=== PATIENT | male | born 1955 | race Asian ===

== ENCOUNTER 2019-05-28 19:51 | Inpatient (IN) | payer MEDICAID ==
[~2019-05-28] VITALS: Ht 177.8 cm; Wt 81.2 kg
[2019-05-28 19:59] VITALS: Ht 177.8 cm; Wt 81.2 kg
--- NOTE | 2019-05-28 20:15 | NUR ---
PT BROUGHT IN BY FAMILY DUE TO C/O OF SOB, GENERALIZED WEAKNESS, POOR APPEITIE, PT IS AAO X 4, MAINLY CANTONESE SPEAKING, DENIES HEADACHE BUT C/O OF DIZZINESS, LUNG SOUNDS DIMINISHED, ON ROOM AIR WITH SPO2:97%, SOB ON EXERTION, ON AND OFF COUGHT WITH BLOOD TINGED SPUTUM, PLACED PT ON PUBLIC FINANCE SPECIALIST WITH NSR, GENERALIZED WEAKNESS, NOTED PT SKIN IS PALE, DR QUINONEZ AT BEDSIDE AND SHEREE PT.
[2019-05-28 21:47] LABS: PLATELET COUNT 86 x10^3mcL (130-400); RED CELL DISTRIBUTION WIDTH 21.4 % (11.5-14.5)
--- NOTE | 2019-05-28 21:50 | NUR ---
DR QUINONEZ MADE AWARE OF PT'S WBC-316.
[2019-05-28 21:51] LABS: ALBUMIN 3.5 g/dL (3.4-5.0); BILIRUBIN TOTAL 1.3 mg/dL (0.20-1.00); CALCIUM 9.5 mg/dL (8.5-10.1); CARBON DIOXIDE 25.1 mmol/L (21-32); CREATININE SERUM 2.4 mg/dL (0.7-1.3); MAGNESIUM 1.8 mg/dL (1.8-2.4); PHOSPHOROUS 4.7 mg/dL (2.5-4.9); TOTAL PROTEIN, SERUM 7.2 g/dL (6.4-8.2)
[2019-05-28 22:13] LABS: POTASSIUM SERUM 2.5 mmol/L (3.5-5.1)
--- NOTE | 2019-05-28 22:14 | NUR ---
DR QUINONEZ AT BEDSIDE AND DISCUSSED POC.
[2019-05-28 22:20] LABS: BLAST 40 % (0); rbc morphology (normal/abnorm) ABNORMAL (NORMAL)
[2019-05-28 22:21] LABS: MONOCYTE 30 % (0-7)
[2019-05-28 22:24] LABS: BAND NEUTROPHIL 2 % (0-10); SEGMENTED NEUTROPHILS 12 % (37-75)
[2019-05-28 22:26] LABS: PATH REVIEW for HEMA YES; PLATELET MORPHOLOGY PLATELETS DECREASED
--- NOTE | 2019-05-28 22:50 | NUR ---
PT TO CT SCAN VIA [facility].
[2019-05-28] MEDS ORDERED: RENAL CAPS1 SGL PO (23:50)
[2019-05-28] MEDS ORDERED: LOP600 PO (23:51)
[2019-05-28] MEDS ORDERED: IBUPROFEN400 MG PO (23:51)
[2019-05-28] MEDS ORDERED: FOLBIC PO (23:51)
[2019-05-28] MEDS ORDERED: FERROUS SULFAT325 M2 PO (23:52)
[2019-05-29] VITALS (8 sets, daily range): BP systolic 106–128; BP diastolic 66–72
--- NOTE | 2019-05-29 00:01 | NUR ---
DR SERRA AT BED SIDE AND SHEREE ROBERT.
[2019-05-29 00:07] LABS: CHOLESTEROL/HDL RATIO 5.7
--- NOTE | 2019-05-29 00:12 | NUR ---
REPORT CALLED AND GIVEN TO SUNSHINE, ALL QUESTIONS ANSWERED AND CONCERNS ADDRESSED.
--- NOTE | 2019-05-29 00:19 | NUR ---
RECEIVED PT VIA [facility] FROM E/D, ACCOMPANIED BY RN, TRANSPORTER, AND PT'S SON-IN-LAW, CHEYENNE KNIGHT. PT A/A/O X 4, CALM, COOPERATIVE, CANTONESE-SPEAKING, SON-IN-LAW BY BEDSIDE COACH WIRER. PT W/ GENERALIZED WEAKNESS, BUT ABLE TO AMBULATE W/ SLOW, STEADY GAIT FROM GURNEY TO BED, FALL RISK PROTOCOL IN PLACE. ON TELE # 23, SR + DEPRESSED ST WAVES + OCCASIONAL PAC'S, HR 97, +DIZZINESS, C/O ACHING CHEST PAIN 7/10 (2/2 COUGHING). SCD BY BEDSIDE. LUNGS BILATERALLY DIM, CHEST RISING EVENLY, R/A, 96%, SOB ON EXERTION, C/O PRODUCTIVE COUGH W/ SMALL AMOUNT OF PINK-TINGED SPUTUM. ABD SOFT, FLAT, NON-TENDER, NORMOACTIVE BOWEL SOUNDS X 4 QUADS, LAST BM 05/28/19, FORMED, EPISODES OF DSYPHAGIA, POOR PO INTAKE > DAYS, WT LOSS > 10# X 1 MO. NOTED L LATERAL NECK LUMP ABOUT 2.5 CM X 3.0 CM, NO ERYTHEMA OR PAIN. C/O CONSTANT ACHING PAIN TO MOUTH, CHIN, AND STOMACH 7/10, EXACERBATED BY MOVEMENT, RELIEVED MILDLY BY RESTING. IV SITE RAC 20G, CDI. ORIENTED PT TO ROOM, BED CONTROLS, CALL LIGHT SYSTEM. SIDE RAILS UP X 2, BED IN LOW POSITION. WILL ENDORSE TO RENA FITZGERALD.
[2019-05-29 00:28] LABS: microscopic required? YES; urine erythrocyte 1+ (NEGATIVE)
--- NOTE | 2019-05-29 06:26 | NUR ---
Pt. currently asleep with family at bedside. Pt. was asleep for most of the shift, no c/o of pain s/p [place] administered around 0100 this morning. Pt. finished ordered dose of IV medication, IV site in tact and patent, extension placed and taped. IVF to start at 0700 this morning as ordered, will endorse to next shift, bag readily available to start IVF @ 100 cc/hr this am. Pt. did have an episode of running low on O2 saturation, placed pt. on NC 2L. Pt. noted to breath throught his mouth, educated pt. and family member that he needs to breathe through his nose to get the oxygen being supplied. O2 sat war around 88-90% on RA d/t mouth breathing. W/ O2 placed, pt. noted to have a reading of 94%, when breathing through mouth. Pt. had no c/o of SOB, just the O2 sat was running low. otherwise, pt. stable, will continue to monitor until the end of shift and endrose to next shift RN.
[2019-05-29 06:53] LABS: CALCIUM 8.9 mg/dL (8.5-10.1); CARBON DIOXIDE 23.7 mmol/L (21-32); CREATININE SERUM 2.5 mg/dL (0.7-1.3); MAGNESIUM 2.2 mg/dL (1.8-2.4); PHOSPHOROUS 7.2 mg/dL (2.5-4.9); POTASSIUM SERUM 3.2 mmol/L (3.5-5.1)
--- NOTE | 2019-05-29 07:40 | NUR ---
RECEIVED PATIENT AWAKE/ALERT IN BED SOB/ LABORED BREATHING NOTED. REPOSITION UP IN BED W/ HOB ELEVATED, O2 2LNC NOTED. TELE #23 ST /W HR 107 NOTED. FAMILY MEMBERS AT BEDSIDE. IVF NS AT 100 ML/HR STARTED TO IV LAC PATENT, DISCUSS POC. CALL LIGHT WITHIN REACH.
[2019-05-29 08:51] LABS: PLATELET COUNT 73 x10^3mcL (130-400); RED CELL DISTRIBUTION WIDTH 21.4 % (11.5-14.5)
--- NOTE | 2019-05-29 09:31 | NUR ---
RECEIVED ORDER FOR BIOPSY OF CERVICAL LYMPHADENOPATHY. SPOKE WITH PATHOLOGIST WHO WILL NEED A SPECIAL PRESERVATIVE "RPMI" TO PREPARE THE SLIDES IF R/O LYMPHOMA IS INDICATED. SPOKE WITH RHEA IN PATHOLOGY AT 0830 WHO WILL ORDER THE RPMI. PER RADIOLOGIST DR AHN THE BIOPSY CAN BE DONE WHEN THE PATHOLOGIST IS AVAILABLE.
[2019-05-29 09:35] LABS: PLATELET COUNT 61 x10^3mcL (130-400); RED CELL DISTRIBUTION WIDTH 21.1 % (11.5-14.5)
[2019-05-29 10:14] LABS: RED BLOOD CELLS 2.15 M/mm3 (4.52-5.90)
--- NOTE | 2019-05-29 10:14 | NUR ---
PATIENT BACK FROM CT HEAD VIA WC, IN BED WITH FAMILY AT BEDSIDE. DR. LEO WAS MADE AWARE REPEATED WBC 314 AND HGB 6.8 AND WAS AWARE NEED PRESERATIVE FOR BIOPSY BEFORE PROCEDURE TAKE PLACE AND PATHOLOGY WILL TRY TO GET IT.
--- NOTE | 2019-05-29 11:45 | NUR ---
PATIENT RESTING IN BED WITH EYES CLOSED, AND SON IN-LAW AT BEDSIDE, CONSENT FOR BLOOD TRANSFUSION AND US GUIDED BIOPSY IS SIGNED BY CYNDIE (SON IN-LAW) NO FURTHER QUESTIONS. DR. PEREZ WITH RESIDENT HAS SEEN AND EXAM PATIENT, DISCUSS POC INCLUDE BIOPSY AND BLOOD TRANSFUSION, ID CONSULT AND ONC CONSULT WITH FAMILY MEMBERS, ESPECIALLY TO CYNDIE TRANSLATE IN [place].
--- NOTE | 2019-05-29 12:00 | NUR ---
PATIENT RESTING IN BED BUT VERY TIRED, OCCAS DOZING OFF. DR. JENKINS AT BEDSIDE SPOKE TO MARC'S FAMILY, INTERVIEWED AND DISCUSS POC WITH SON IN-LAW CYNDIE.
[2019-05-29 12:52] LABS: BAND NEUTROPHIL 22 % (0-10); METAMYELOCTE 8 % (0-2); MONOCYTE 29 % (0-7); MYELOCYTE 9 % (0-2); SEGMENTED NEUTROPHILS 8 % (37-75)
[2019-05-29 12:53] LABS: BLAST 10 % (0); rbc morphology (normal/abnorm) ABNORMAL (NORMAL)
[2019-05-29 12:55] LABS: PLATELET MORPHOLOGY PLATELETS DECREASED
[2019-05-29 13:05] LABS: SEGMENTED NEUTROPHILS 8 % (37-75)
[2019-05-29 13:06] LABS: BAND NEUTROPHIL 18 % (0-10); METAMYELOCTE 7 % (0-2); MONOCYTE 33 % (0-7)
[2019-05-29 13:07] LABS: BLAST 14 % (0); MYELOCYTE 8 % (0-2)
[2019-05-29 13:08] LABS: PLATELET MORPHOLOGY PLATELETS DECREASED
[2019-05-29 13:11] LABS: rbc morphology (normal/abnorm) ABNORMAL (NORMAL)
--- NOTE | 2019-05-29 14:16 | NUR ---
PATIENT AWAKEN IN BED WITH FAMILY MEMBERS, ICE [employer] VAULT WORKER AT BEDSIDE DRAWING BLOOD. CLEOCIN INFUSING AT 200ML/HR TO LAC IV PATENT, NEEDS MET. CALL LIGHT WITHIN REACH.
--- NOTE | 2019-05-29 14:32 | NUR ---
INFORM CHEYENNE SON IN-LAW WILL TRANSFER PATIENT TO ANOTHER HOSPITAL SOON BED AVAILABLE.
[2019-05-29 14:55] LABS: PLATELET COUNT 76 x10^3mcL (130-400)
[2019-05-29 14:56] LABS: CALCIUM 8.8 mg/dL (8.5-10.1); CARBON DIOXIDE 23.6 mmol/L (21-32); CREATININE SERUM 2.6 mg/dL (0.7-1.3); PHOSPHOROUS 5.4 mg/dL (2.5-4.9); POTASSIUM SERUM 3.1 mmol/L (3.5-5.1); URIC ACID 13.9 mg/dL (3.5-7.2)
--- NOTE | 2019-05-29 15:44 | NUR ---
PATIENT UP TO BATHROOM W/ ASSIST BY , TEMP 99.7 PREMEDICATED TYLENOL 650MG PO AND BENADRYL 25MG PO, PATIENT TOLERATED WELL. SOB ON EXERTION NOTED. RESTING IN BED, CONT TO MONITOR.
[2019-05-29 16:13] LABS: BAND NEUTROPHIL 5 % (0-10); BLAST 27 % (0); MONOCYTE 43 % (0-7); SEGMENTED NEUTROPHILS 12 % (37-75); rbc morphology (normal/abnorm) ABNORMAL (NORMAL); tear drop cell (dacryocyte) 1+
[2019-05-29 16:14] LABS: PLATELET MORPHOLOGY PLATELETS DECREASED
--- NOTE | 2019-05-29 16:19 | NUR ---
PATIENT SLEEPING AT THIS TIME, FAMILY MEMBERS REMAIN AT BEDSIDE, 1 UNIT PRBC STARTED, VITALS STABLE TEMP 99.7 AFTER 15 MIN BLOOD TRANSFUSE NO REACTION NOTED. VITALS STABLE, TEMP 98.2 CONT TO MONITOR.
--- NOTE | 2019-05-29 16:29 | NUR ---
PER CN RANDY WBC 337.6 AND HGB 6.[address] LEO AT 7501.
--- NOTE | 2019-05-29 18:09 | NUR ---
PATIENT LAYING IN BED AWAKEN, DINNER TRAY ON BEDSIDE TABLE, PATIENT DON'T WANT TO EAT YET, HELD PHOSLO. BLOOD INFUSING CONT AT 125ML/HR, NO REACTION NOTED. CONT TO MONITOR
--- NOTE | 2019-05-29 18:46 | NUR ---
BLOOD TRANSFUSION COMPLETED, VITALS STABLE, TEMP 98.4 AND PATIENT UP TO BATHROOM AND BACK SIT IN CHAIR, LASIX 20MG PO ADMINISTERED ORDERED AFTER BLOOD COMPLETED. CONT TO MONITOR.
--- NOTE | 2019-05-29 18:54 | NUR ---
DR. LEO MADE AWARE THAT PT HAS A BED IN [facility] ICU#[address] GARCÍA. ATTENDING NURSE MADE AWARE AWITING ORDER TO ACTIVATE WILL CALL.
--- NOTE | 2019-05-29 19:09 | NUR ---
DEVELOPMENTAL SERVICES WORKER HERE TO REDRAW H/H, PATIENT REMAIN UP IN CHAIR. REMAIN AT BEDSIDE.
[2019-05-29 20:25] LABS: PLATELET COUNT 78 x10^3mcL (130-400); RED CELL DISTRIBUTION WIDTH 19.7 % (11.5-14.5)
[2019-05-29 20:27] LABS: BAND NEUTROPHIL 12 % (0-10); BASOPHIL 0 % (0-2); BLAST 26 % (0); MONOCYTE 38 % (0-7); PLATELET MORPHOLOGY PLATELETS DECREASED; SEGMENTED NEUTROPHILS 9 % (37-75); rbc morphology (normal/abnorm) ABNORMAL (NORMAL)
== END 2019-05-29 21:01 | disposition short-term general hospital (02) | DRG 422 ==
LOC: ED 19:51 → DU 23:30
PROVIDERS: Emergency Medicine; ADMIT General Practice
DX: E86.0 Dehydration (principal); N17.0 Acute kidney failure with tubular necrosis; C91.10 Chronic lymphocytic leukemia of B-cell type not having achieved remission; D68.9 Coagulation defect, unspecified; D69.6 Thrombocytopenia, unspecified; E87.6 Hypokalemia; R74.0 Nonspecific elevation of levels of transaminase and lactic acid dehydrogenase [LDH]; R22.1 Localized swelling, mass and lump, neck; Z68.25 Body mass index [BMI] 25.0-25.9, adult; Z79.1 Long term (current) use of non-steroidal anti-inflammatories (NSAID)
CPT/HCPCS: 85060; 86480; 86580; C9113; G0378; J3490; J7030; J7040; J7050; P9016; Q0092; Q0163